=== PATIENT | female | born 1935 | race Caucasian/White ===

== ENCOUNTER 2017-02-26 05:20 | Inpatient (IN) | payer OTHER, BC ==
[2017-02-07 12:58] VITALS: BMI 19.0
--- NOTE | 2017-02-07 13:22 | PAT Medication Instructions ---
Service Date Feb 07, 2017. Current Home Medication List Botulinum Toxin Type A (Botox), 1 DOSE TOP [id number] Calcium Carbonate-Vitamin D (Calcium), 1 TAB PO BID Cholecalciferol (Vitamin D3), 1 TAB PO QAM Glucosamine Sulfate (Glucosamine), 1,000 MG PO QAM Memantine (Namenda), 5 MG PO BID Metoprolol Succ (Toprol Xl) (Toprol-Xl), 25 MG PO QAM Pantoprazole (Protonix), 40 MG PO QAM Simvastatin (Zocor), 20 MG PO QPM Verapamil (Calan), 120 MG PO QPM Medication Instructions For Your Scheduled Surgery Botulinum Toxin Type A (Botox), 1 DOSE TOP [id number] (continue as usual) - Hold the following medications 7 days prior to surgery: Glucosamine Sulfate (Glucosamine), 1,000 MG PO QAM - Hold the following medications the morning of surgery: Cholecalciferol (Vitamin D3), 1 TAB PO QAM Calcium Carbonate-Vitamin D (Calcium), 1 TAB PO BID - Take the following medications the morning of surgery with a sip of water: Metoprolol Succ (Toprol Xl) (Toprol-Xl), 25 MG PO QAM Pantoprazole (Protonix), 40 MG PO QAM Memantine (Namenda), 5 MG PO BID - Take the following medications as scheduled the night before surgery: Simvastatin (Zocor), 20 MG PO QPM Verapamil (Calan), 120 MG PO QPM Memantine (Namenda), 5 MG PO BID Calcium Carbonate-Vitamin D (Calcium), 1 TAB PO BID If you have any questions please call us at [phone] or [phone] ( Tram) or [phone]
[2017-02-07 13:53] LABS: BASO % 0.8 %; BASO ABS # 0.03 K/uL (0-0.2); COMPLETE YES; EOS % 1.1 %; LYMPH % 34.9 %; LYMPH ABS # 1.25 K/uL (1.2-3.4); MEAN CORPUSCULAR HEMOGLOBIN 30.7 pg (25-34); MEAN CORPUSCULAR HGB CONC 34.1 g/dl (32-36); MEAN PLATELET VOLUME 10.8 fL (7.4-10.4); MONO % 10.3 %; NEUT % 52.9 %; PLATELET COUNT 153 K/uL (130-400); RED BLOOD COUNT 4.11 M/uL (4.2-5.4); WHITE BLOOD COUNT 3.58 K/uL (4.8-10.8)
--- NOTE | 2017-02-07 13:57 | DIAGNOSTIC IMAGING REPORT ---
TWO VIEW CHEST CLINICAL HISTORY: Preoperative examination. FINDINGS: PA and lateral chest radiographs are obtained. No prior studies are available for comparison at the time of dictation. The heart is top normal for projection and there is atherosclerotic calcification of the thoracic aorta. A calcified granuloma is noted at the right lung base. The lungs and pleural spaces are otherwise clear. There is no pneumothorax. The skeletal structures are osteopenic. The bony thorax appears intact. Moderate degenerative changes seen throughout the thoracic spine. IMPRESSION: No active disease in the chest. Electronically signed by: Sudheer Ratliff M.D. 02/07/2017 1:55 PM Dictated Date/Time: 02/07/2017 1:54 PM
[2017-02-07 13:58] LABS: MANUAL MICROSCOPIC REQUIRED? NO; REVIEW REQ? NO; URINE APPEARANCE CLEAR (CLEAR); URINE BILIRUBIN NEG (NEG); URINE COLOR YELLOW; URINE NITRITE NEG (NEG); URINE SPECIFIC GRAVITY 1.019 (1.000-1.030); UROBILINOGEN NEG (NEG); ZZUR CULT IF INDIC CLEAN CATCH NO
[2017-02-07 14:22] LABS: BUN/CREATININE RATIO 11.4 (10-20); CALCIUM 9.6 mg/dl (8.5-10.1); CREATININE 1.1 mg/dl (0.60-1.20); POTASSIUM 3.9 mmol/L (3.5-5.1)
--- NOTE | 2017-02-25 17:13 | HISTORY & PHYSICAL EXAMINATION ---
DATE OF ADMISSION: 02/26/2017 CHIEF COMPLAINT: Right hip pain. HISTORY OF PRESENT ILLNESS: This is a 81-year-old female patient of Dr. Prasad'penny complaining of chronic right hip pain, longstanding, now progressively getting worse. The patient has been diagnosed with end-stage osteoarthritis per clinical and radiographic exams and wishes to proceed with a right total hip arthroplasty. The patient has increased pain with weightbearing activities and her pain does interfere with her activities of daily living. PAST MEDICAL HISTORY: Hypercholesterolemia, sleep apnea with the use of CPAP, rheumatoid arthritis, osteoarthritis, sciatica, acid reflux, recent severe weight loss. SOCIAL HISTORY: Nonsmoker, nondrinker. PAST SURGICAL HISTORY: Tubal ligation, bilateral cataracts and bilateral carpal tunnel. FAMILY HISTORY: Noncontributory. REVIEW OF SYSTEMS: The patient complains of chronic right hip pain. Otherwise, denies any shortness of breath, chest pain, nausea, vomiting or any other joint complaints. MEDICATIONS: Include Botox 100 units injection around eyes and blepharospasm, calcium 6/200 one twice daily, Glucosamine/chondroitin daily, memantine 5 mg b.i.d., metoprolol 25 mg daily, nasal suspension 2 sprays in each nostril once daily, pantoprazole 40 mg daily, simvastatin 20 mg daily, verapamil 120 mg daily, Vitamin D3 daily. ALLERGIES: No known drug allergies. PHYSICAL EXAMINATION: GENERAL: Well-developed, well-nourished 81-year-old female in no acute distress. She is alert and oriented x3 and pleasant. HEENT: Normocephalic, atraumatic. Extraocular motions are intact. Pupils are equal and reactive to light. HEART: Regular rate and rhythm, no murmurs appreciated. LUNGS: Clear. ABDOMEN: Soft and nontender, bowel sounds are present. EXTREMITIES: Right hip reveals no significant flexion contracture. She does have pain with passive internal and external rotation of the hip in a straightened position and in 90/90 degrees of flexion. NEUROLOGIC: Neurovascularly, she is intact in her right lower extremity. DIAGNOSES: Right hip end-stage osteoarthritis, hypercholesterolemia, sleep apnea with the use of CPAP, rheumatoid arthritis, osteoarthritis, sciatica, acid reflux and severe weight loss in the past. PLAN: The patient was advised of her diagnosis. Indications, risks, benefits, and postop course have all been reviewed. The patient wishes to proceed with a right total hip arthroplasty. Necessary consent forms, preoperative testing and clearances will be obtained.
[2017-02-26] VITALS (8 sets, daily range): BP systolic 91–139; BP diastolic 51–74; PULSE 73–92; TEMP 36.3–36.7; O2SAT 99–100; Ht 152.4 cm; Wt 45.7 kg
[~2017-02-26] VITALS: Ht 152.4 cm; Wt 45.7 kg
[~2017-02-26 05:20] MED LIST: BTLAI TOP; CALC-51 PO; CHOL1CAP57 PO; GLUC10007 PO; METO25TA3 PO; NMN5 PO; PANT40TA PO; SIMV20TA2 PO; VERA120T15 PO
[2017-02-26] MEDS ORDERED: CEFAZOLIN 1000MG/55 ML D5W 55 ML IV SCH (06:00)
[2017-02-26] MEDS ORDERED: FAMOTIDINE 20 MG TAB PO SCH (06:00)
[2017-02-26] MEDS ORDERED: METOCLOPRAMIDE HCL 10 MG TAB PO SCH (06:00)
[2017-02-26] MEDS ORDERED: LACTATED RINGER'S 1000ML 1,000 ML IV SCH (06:00)
[2017-02-26] MEDS ORDERED: ROPIVACAINE 5MG/ML 30 ML 150 MG, BUPIVACAINE/EPINEPHR 0.5% MPF 30 ML, KETOROLAC TROMETH... INFIL SCH ×6 (06:00)
[2017-02-26] MEDS ORDERED: ACETAMINOPHEN 500 MG TAB PO SCH (06:00)
[2017-02-26] MEDS ORDERED: GABAPENTIN 300 MG CAP PO SCH (06:00)
[2017-02-26] MEDS ORDERED: LACTATED RINGER'S 1000ML IV SCH (06:00)
[2017-02-26] MEDS ORDERED: CeleBREX 200 MG CAP PO SCH (06:00)
[2017-02-26] MEDS ORDERED: DEXAMETHASONE 4 MG TAB PO SCH (06:00)
[2017-02-26] MEDS ORDERED: BUPIVACAINE 0.5 % 5 MG/1 ML PF 10ML VIAL ONE (06:33)
[2017-02-26] MEDS ORDERED: MIDAZOLAM HCL 1 MG/ML 2ML VIAL ONE (06:46)
[2017-02-26] MEDS: TRANEXAMIC ACID INJ 1,000 MG in SODIUM CHLORIDE 0.9% 100ML 100 ML IV SCH ×2 (06:53→15:33)
[2017-02-26] MEDS ORDERED: POVIDONE-IODINE OP SOLN 30 ML BTL ONE (07:10)
[2017-02-26] MEDS ORDERED: ORTHO JOINT ANESTHETIC ONE (07:10)
[2017-02-26] MEDS ORDERED: BACITRACIN 50000 UNIT VIAL ONE (07:11)
--- NOTE | 2017-02-26 07:12 | History & Physical Bridge Note ---
H&P Re-Evaluation Bridge Note: I have examined the patient, reviewed the History & Physical and in the interval since the performance of the History & Physical I have noted the following changes of clinical significance: No changes noted
[2017-02-26] MEDS ORDERED: LABETALOL HCL IV 5 MG/ML 20ML IV PRN (07:45)
[2017-02-26] MEDS ORDERED: MEPERIDINE HCL 25 MG/ML CARP IV PRN (07:45)
[2017-02-26] MEDS ORDERED: HYDROmorphone INJ 1 MG/ML SYR IV PRN (07:45)
[2017-02-26] MEDS ORDERED: ONDANSETRON INJ 2 MG/ML 2 ML VIAL IV PRN ×2 (07:45→10:00)
[2017-02-26] MEDS ORDERED: FENTANYL CITRATE INJ 50 MCG/1 ML 2 ML VIAL IV PRN (07:45)
[2017-02-26] MEDS ORDERED: ATROPINE SULFATE 0.1 MG/ML 5ML SYR IV PRN (07:45)
[2017-02-26] MEDS ORDERED: EpHEDrine SULFATE INJ 50 MG/ML AMP IV PRN (07:45)
[2017-02-26] MEDS ORDERED: EpHEDrine SULFATE 50MG/5ML SYR ONE (07:57)
[2017-02-26] MEDS ORDERED: PHENYLEPHRINE 100MCG/ML 5ML SYR ONE (08:38)
[2017-02-26] MEDS ORDERED: PHENYLEPHRINE HCL INJ 10 MG/ML VIAL ONE (09:05)
--- NOTE | 2017-02-26 09:54 | [facility] Operative Report ---
Operative Report Operative Date Feb 26, 2017. Pre-Operative Diagnosis Right hip end-stage osteoarthritis Post-Operative Diagnosis same ,abductor tendinopathy Procedure(s) Performed right total hip replacement Surgeon Dr Prasad Plant Machinist Surgeon(s) Jose Luis Barton PA-C Estimated Blood Loss 150 ml Findings protrusio djd end stage grade 4 right hip Specimens A. Right femoral head Drains 2 hemovac Anesthesia spinal,sedation,orthomix Complication(s) None Disposition Recovery Room / PACU Indications end stage djd oa I attest to the content of the Intraoperative Record and any orders documented therein. Any exceptions are noted below.
[2017-02-26] MEDS ORDERED: OXYCODONE HCL IR 5 MG TAB (IMMEDIATE RELEASE) PO PRN (10:00)
[2017-02-26] MEDS ORDERED: TRAMADOL HCL 50 MG TAB PO PRN (10:00)
[2017-02-26] MEDS ORDERED: MAGNESIUM HYDROXIDE SUSP 30 ML UDC PO PRN (10:00)
[2017-02-26] MEDS ORDERED: ZOLPIDEM TARTRATE 5 MG TAB PO PRN (10:00)
[2017-02-26] MEDS ORDERED: SOD PHOSPHATE/SOD BIPHOSPHATE ENEMA 132 ML BTL PR PRN (10:00)
[2017-02-26] MEDS ORDERED: MoRPHine SULFATE 2 MG/ML CARP IV PRN (10:00)
[2017-02-26] MEDS ORDERED: BISACODYL 10 MG SUPP PR PRN (10:00)
--- NOTE | 2017-02-26 10:31 | DIAGNOSTIC IMAGING REPORT ---
RIGHT PELVIS/UNILATERAL HIP 1 VIEW CLINICAL HISTORY: Right hip arthroplasty. COMPARISON: None FINDINGS: Alignment of the total right hip arthroplasty is anatomic no periprosthetic fracture or unexpected radiopaque foreign bodies are identified. There are 2 acetabular screws and surgical drains. Skin jane are present. IMPRESSION: Expected findings following total right hip arthroplasty. Electronically signed by: Richy Rodgers M.D. 02/26/2017 10:30 AM Dictated Date/Time: 02/26/2017 10:30 AM
--- NOTE | 2017-02-26 10:34 | OPERATIVE REPORT ---
DATE OF OPERATION: 02/26/2017 INDICATION FOR PROCEDURE: The patient is a 81-year-old female with progressive pain and disability due to osteoarthritis in her right hip. Her physical exam demonstrates that she has pain and positive impingement signs. Radiographs demonstrate she is [id number] in her right hip with protrusio type hip arthritis with rimming osteophytes. PREOPERATIVE DIAGNOSIS: End-stage osteoarthritis of the right hip. POSTOPERATIVE DIAGNOSIS: Same. PROCEDURE: Right total hip arthroplasty. SURGEON: Dr. Prasad. MAIL PROCESSING ASSOCIATE: Jose Luis Barton PA-C. ANESTHESIA: Spinal sedation, Orthomix. OPERATION AND FINDINGS: OPERATIVE PROCEDURE: The patient taken to the operating room, anesthetized under spinal anesthetic sedation. She was placed supine on the operating room table on a sacral pad. A towel roll was placed under her lumbar spine for support. The bed was placed in some Trendelenburg tilted to the left to help expose the right hip. A foot roll was placed to flex her knee 90 degrees, hip 60 degrees. Her right hip was sterilely prepped and draped in usual sterile fashion. Longitudinal incision was made over the lateral side of the right hip. Subcutaneous fat was fairly deep and divided down to the fascia. Subcutaneous bleeders were cauterized. The fascia elicia was divided longitudinally and the gluteus briana fascia was split proximally. Trochanteric bursa was resected. The patient had some gluteus medius abductor tendinopathy without a raven tear, but there was some tendinopathic fraying of the tendon. The Hardinge type approach was performed. The gluteus medius was split between its anterior 40% and posterior 60%. The minimus was identified, divided and reflected off the capsule. The capsule was divided down to the hip joint. A curvilinear incision was made through the gluteus medius tendon leaving a cuff of tissue for repair on the trochanter and the vastus lateralis was split longitudinally for 3 cm. Muscular capsular flap was elevated off the hip joint. There were femoral neck osteophytes, rimming osteophytes and grade 4 DJD in the femoral head noted upon dislocation with flexion and external rotation. The femoral neck cut was made 15 mm proximal to the lesser trochanter. The oscillating saw was used. The femoral head was about 42 mm size. Central region of the head was down to bone. Acetabular retractors were placed. The osteophytes were resected. The acetabular labrum was resected. Soft tissue in the acetabular fossa was resected. The transverse acetabular ligament was resected. We started with a 40 mm reamer to medialize the reamer which we did not have to do much because she was already protrusio. Then we went up in sequential 2 mm increments up to a 46, which had good fit and fill. The trial was placed and was an excellent fit. The Court[place] Trident PSL 46 mm D cup was impacted in about 45 degrees of abduction and 15 degrees of anteversion. There was good press fit. Two additional screws 6.5 x 25 x 20 mm screws were used for cup fixation and then after irrigation with antibiotic solution, we placed in the Trident X3 poly 36 mm D 0 degree liner. Then we injected some of the Orthomix around the capsule, around the acetabulum and into the minimus tendon area. Then I exposed the femur with flexion and external rotation. Then a box osteotome was used to open up the canal followed by canal reamer, followed by broaches for the Accolade II stem. We broached up to a 4, which had appropriate fit and fill, 127 degree neck angle was used based on preoperative templating. We used a -5 neck length which gave equal leg lengths and stability, full range of motion. Trials were removed. The canal was irrigated with antibiotic solution and bacitracin. The Accolade II #4 stem, 127 degree neck angle was impacted until fully seated and a good press fit. Then the 36 mm Biolox ceramic -5 neck femoral head was impacted onto the stem. This was reduced to the acetabulum. Stability was verified with full flexion, internal rotation, adduction and external rotation and extension. Soft tissue was satisfactory in terms of tension. The minimus was then repaired with [id number] #1 Vicryl sutures. The medius was repaired with transosseous #5 FiberWire sutures using Jai-Patrice suture technique and lateral row soft tissue fixation with #2 FiberWire [id number] sutures. The 2 drains were placed into the joint prior to that closure brought out laterally and then the vastus lateralis closed with a running #1 Vicryl suture, the medius split was closed with [id number] #1 Vicryl sutures. The vastus lateralis and the gluteus briana fascia was closed with interrupted [id number] #1 Vicryl sutures. Subcutaneous tissue closed with interrupted large #2 Vicryl sutures to close the space and 2-0 Vicryl superficially with jane and Silverlon dressing and Hemovac was attached to the drains. The patient had about 150 mL of blood loss, tolerated the procedure well. OLIVERIO Morales was my press operator assistant and functioned as press operator assistant for the entire procedure. He assisted in patient positioning, prepping, draping, leg positioning, soft tissue retraction, and perform the subcutaneous and skin closure and dressings and will participate in postoperative care of the patient. I attest to the content of the Intraoperative Record and any orders documented therein. Any exceptio ns are noted below.
--- NOTE | 2017-02-26 11:17 | Anesthesiology Progress Note ---
Anesthesia Post Op Note Date & Time Feb 26, 2017 at 11:16 Vital Signs Pain Intensity: 0 Vital Signs Past 12 Hours Date Time Temp Pulse Resp B/P Pulse Ox O2 Delivery O2 Flow Rate FiO2 02/26/17 11:05 83 16 99/55 100 Nasal Cannula 2 02/26/17 10:50 36.2 74 16 101/56 100 Nasal Cannula 2 02/26/17 10:40 75 18 102/59 100 Nasal Cannula 2 02/26/17 10:30 74 16 101/66 100 Nasal Cannula 2 02/26/17 10:20 78 16 113/56 100 Nasal Cannula 2 02/26/17 10:10 74 15 106/58 100 Nasal Cannula 2 02/26/17 10:00 81 19 105/52 100 Nasal Cannula 2 02/26/17 09:54 36.3 81 16 112/58 100 Nasal Cannula 2 02/26/17 06:03 36.5 73 16 139/73 99 Room Air Notes Mental Status: alert / awake / arousable, participated in evaluation Pt Amnestic to Procedure: Yes Nausea / Vomiting: adequately controlled Pain: adequately controlled Airway Patency, RR, SpO2: stable & adequate BP & HR: stable & adequate Hydration State: stable & adequate Neuraxial Anesthesia: was administered, sensory block is resolving Anesthetic Complications: no major complications apparent
[2017-02-26] MEDS ORDERED: MoRPHine SULFATE 4 MG/ML 1 ML CARP\\VIAL IV PRN (14:30)
--- NOTE | 2017-02-26 15:32 | Medical Consult ---
Consultation Date of Consultation: Feb 26, 2017. Attending Physician: Mynor Prasad M.D. Reason for Consultation: Medical management History of Present Illness This patient is a 81-year-old female with a history of hypertension, hip osteoarthritis, hyperlipidemia, obstructive sleep apnea on CPAP, GERD, blepharospasm, CTD stage III, restless leg syndrome, osteoporosis, vitamin D deficiency, and mild cognitive impairment, who is here for a right total hip arthroplasty completed by Dr. Hernandez this morning. Postoperatively, she was doing very well. She denies chest pain or shortness of breath, no nausea vomiting or headaches. Her hip pain is very well controlled. She is eating and drinking. Her Juarez catheter is in place, and her drains are in place for the hip. Past Medical/Surgical History Past medical history: Hip osteoarthritis Hyperlipidemia Obstructive sleep apnea on CPAP Hypertension Sciatica GERD Blepharospasm Mild cognitive impairment CKD stage III Mrs. leg syndrome Osteoporosis Vitamin D deficiency Past surgical history: Cardiac catheterization 15 years ago-normal as per patient Cataracts BTL CTS release Family History Noncontributory due to advanced age Social History Smoking Status: Never Smoker Alcohol Use: none Drug Use: none Marital Status: Housing Status: lives with family Occupation Status: retired Allergies Coded Allergies: Hydrocodone (Verified Allergy, Mild, RASH, 02/26/17) RN CONFIRMED WITH PATIENT AND FAMILY THAT ALLERGY ONLY A RASH - NO HIVES OR RESP COMPLICATIONS Diazepam (Unverified Allergy, Unknown, per records , 02/07/17) Home Medications Reported Home Medications Medications Dose Route/Sig Max Daily Dose Days Date Category Dose Instructions Vitamin D3 (Cholecalciferol) 1,000 Unit Cap 1 Tab PO QAM 02/07/17 Reported Calan (Verapamil HCl) 120 Mg Tab 120 Mg PO QPM 02/07/17 Reported Zocor (Simvastatin) 20 Mg Tab 20 Mg PO QPM 02/07/17 Reported Protonix (Pantoprazole Sodium) 40 Mg Tab 40 Mg PO QAM 02/07/17 Reported Toprol-Xl (Metoprolol Succinate) 25 Mg Tabcr 25 Mg PO QAM 02/07/17 Reported Namenda (Memantine) 5 Mg Tab 5 Mg PO BID 02/07/17 Reported Glucosamine (Glucosamine Sulfate) 1,000 Mg Tab 1,000 Mg PO QAM 02/07/17 Reported Calcium (Calcium Carbonate-Vitamin D) 1 Tab Tab 1 Tab PO BID 02/07/17 Reported Botox (Botulinum Toxin Type A) 100 Units Inj 1 Dose TOP [id number] 02/07/17 Reported BLEPHOROSPAMS Current Inpatient Medications Current Inpatient Medications Medications (Trade) Dose Ordered Sig/Cy Route Start Time Stop Time Status Last Admin Dose Admin Lactated Ringer's 1,000 ml @ 15 mls/hr Q24H IV 02/26/17 06:00 02/27/17 05:59 Lactated Ringer's 1,000 ml @ 60 mls/hr [id number] IV 02/26/17 06:00 02/26/17 22:39 02/26/17 06:15 60 MLS/HR Cefazolin Sodium (Ancef 1000mg/55 ml D5W) 55 ml @ 100 mls/hr PREOP IV 02/26/17 06:00 02/26/17 18:00 02/26/17 07:28 100 MLS/HR Acetaminophen (Tylenol Tab) 1,000 mg PREOP PO 02/26/17 06:00 02/26/17 18:00 02/26/17 06:16 1,000 MG Celecoxib (CeleBREX CAP) 200 mg PREOP PO 02/26/17 06:00 02/26/17 18:00 02/26/17 06:15 200 MG Dexamethasone (Decadron Tab) 8 mg PREOP PO 02/26/17 06:00 02/26/17 18:00 02/26/17 06:16 8 MG Famotidine (Pepcid Tab) 20 mg PREOP PO 02/26/17 06:00 02/26/17 18:00 02/26/17 06:15 20 MG Gabapentin (Neurontin Cap) 300 mg PREOP PO 02/26/17 06:00 02/26/17 18:00 02/26/17 06:15 300 MG Metoclopramide HCl 10 mg 10 mg PREOP PO 02/26/17 06:00 02/26/17 18:00 02/26/17 06:15 10 MG Tranexamic Acid/ Sodium Chloride (Cyklokapron Inj/ Nss 100ml) 110 ml @ 660 mls/hr TODAY@06,0630 IV 02/26/17 06:00 02/26/17 18:00 02/26/17 06:53 660 MLS/HR Memantine (Namenda Tab) 5 mg BID PO 02/26/17 21:00 03/28/17 20:59 Metoprolol Succinate (Toprol Xl Tab) 25 mg QAM PO 02/27/17 09:00 03/29/17 08:59 Pantoprazole Sodium (Protonix Tab) 40 mg QAM PO 02/27/17 09:00 03/29/17 08:59 Simvastatin (Zocor Tab) 20 mg QPM PO 02/26/17 21:00 03/28/17 20:59 Cholecalciferol (Vitamin D Tab) 1,000 inter.unit QAM PO 02/27/17 09:00 03/29/17 08:59 Verapamil HCl 120 mg 120 mg QPM PO 02/26/17 21:00 03/28/17 20:59 Potassium Chloride/Dextrose/ Sod Cl (D5W And 1/2nss + 20meq KCl) 1,000 ml @ 100 mls/hr Q10H IV 02/26/17 14:30 02/27/17 09:51 Celecoxib (CeleBREX CAP) 200 mg BID PO 02/26/17 21:00 03/28/17 20:59 Oxycodone HCl (Roxicodone Immediate Rel Tab) 1 TABLET FOR PAIN RATING... Q4H PRN PO 02/26/17 10:00 03/12/17 09:59 Morphine Sulfate (MoRPHine SULFATE INJ) 2 mg Q2H PRN IV 02/26/17 10:00 03/12/17 09:59 Acetaminophen (Tylenol Tab) 1,000 mg Q8H PO 02/26/17 14:00 03/28/17 13:59 Magnesium Hydroxide (Milk Of Magnesia Susp) 30 ml Q6H PRN PO 02/26/17 10:00 03/28/17 09:59 Bisacodyl (Dulcolax Supp) 10 mg DAILY PRN LA 02/26/17 10:00 03/28/17 09:59 Sodium Biphosphate/ Sodium Phosphate (Fleet Enema) 132 ml DAILY PRN LA 02/26/17 10:00 03/28/17 09:59 Docusate Sodium (coLACE CAP) 100 mg BID PO 02/26/17 21:00 03/28/17 20:59 Diphenhydramine HCl (Benadryl Cap) 25 mg Q8H PRN PO 02/26/17 10:00 03/28/17 09:59 Zolpidem Tartrate (Ambien Tab) 5 mg HSZ PRN PO 02/26/17 10:00 03/28/17 09:59 Multivitamins (Multivitamin Tab) 1 tab QAM PO 02/27/17 09:00 03/29/17 08:59 Ondansetron HCl (Zofran Inj) 4 mg Q6H PRN IV 02/26/17 10:00 03/28/17 09:59 Tramadol HCl 1 TABLET FOR PAIN RATING... Q4H PRN PO 02/26/17 10:00 03/28/17 09:59 Cefazolin Sodium/ Dextrose (Ancef Iv/D5 50ml) 55 ml @ 100 mls/hr Q8@0000,0800,1600 IV 02/26/17 16:00 02/27/17 00:32 Aspirin (Ecotrin Tab) 81 mg BID PO 02/26/17 21:00 03/28/17 20:59 Calcium/Vitamin D (Caltrate Plus Tab) 1 tab BID PO 02/26/17 21:00 03/28/17 20:59 Morphine Sulfate (MoRPHine SULFATE INJ) 4 mg Q2H PRN IV 02/26/17 14:30 03/12/17 14:29 Review of Systems Constitutional: No chills, No fever Eyes: No problem reported ENT: No problem reported Respiratory: No shortness of breath Cardiovascular: No chest pain Abdomen: No constipation, No diarrhea, No nausea, No pain, No vomiting Musculoskeletal: + joint pain (right hip) Genitourinary - Female: No problem reported Neurologic: + memory loss Psychiatric: No problem reported Endocrine: No problem reported Hematologic / Lymphatic: No problem reported Integumentary: No problem reported Allergic / Immunologic: No problem reported Physical Exam Date Time Temp Pulse Resp B/P Pulse Ox O2 Delivery O2 Flow Rate FiO2 02/26/17 14:16 36.7 84 18 119/65 100 Nasal Cannula 2.0 02/26/17 13:46 36.5 78 17 105/67 100 Nasal Cannula 2.0 02/26/17 12:45 36.4 84 14 100/59 99 Nasal Cannula 2.0 02/26/17 12:16 82 14 109/58 94 Nasal Cannula 2 02/26/17 12:00 82 14 105/64 95 Nasal Cannula 2 02/26/17 11:51 36.3 84 14 102/60 97 Nasal Cannula 2 02/26/17 11:45 7 17 90/60 100 Nasal Cannula 2 02/26/17 11:30 78 16 101/56 100 Nasal Cannula 2 02/26/17 11:15 76 16 101/64 100 Nasal Cannula 2 02/26/17 11:05 83 16 99/55 100 Nasal Cannula 2 02/26/17 10:50 36.2 74 16 101/56 100 Nasal Cannula 2 02/26/17 10:40 75 18 102/59 100 Nasal Cannula 2 02/26/17 10:30 74 16 101/66 100 Nasal Cannula 2 02/26/17 10:20 78 16 113/56 100 Nasal Cannula 2 02/26/17 10:10 74 15 106/58 100 Nasal Cannula 2 02/26/17 10:00 81 19 105/52 100 Nasal Cannula 2 02/26/17 09:54 36.3 81 16 112/58 100 Nasal Cannula 2 02/26/17 06:03 36.5 73 16 139/73 99 Room Air General Appearance: WD/WN, no apparent distress Head: normocephalic, atraumatic Eyes: normal inspection, EOMI, sclerae normal ENT: hearing grossly normal, pharynx normal Neck: no adenopathy, thyroid normal, no JVD, no carotid bruits, trachea midline Respiratory/Chest: lungs clear, normal breath sounds, no respiratory distress, no accessory muscle use Cardiovascular: regular rate, rhythm, no edema, no gallop, no JVD, no murmur, normal peripheral pulses Abdomen/GI: normal bowel sounds, non tender, soft, no organomegaly, no pulsatile mass Extremities/Musculoskelatal: no calf tenderness, no pedal edema, + pertinent finding (right hip with dressing in place, drains draining bloody fluid, able to move ankles feet and toes, sensation intact in legs and feet.) Neurologic/Psych: alert, normal mood/affect, oriented x 3 Skin: normal color, warm/dry, no rash Lymphatic: no adenopathy Assessment & Plan This patient is a 81-year-old female with a history of hypertension, hip osteoarthritis, hyperlipidemia, obstructive sleep apnea on CPAP, GERD, blepharospasm, CTD stage III, restless leg syndrome, osteoporosis, vitamin D deficiency, and mild cognitive impairment, who is here for a right total hip arthroplasty. Right JAMIL-postop day 0 -Pain control and postoperative management as per orthopedic primary service -DVT prophylaxis with aspirin 81 mg by mouth twice a day as per orthopedics -I would avoid NSAIDs such as Celebrex in this patient given her history of CK D stage III Hypertension, hyperlipidemia-blood pressure is stable -Continue home metoprolol, verapamil, and simvastatin Obstructive sleep apnea-stable -Continue CPAP at night, can bring from home CKD stage III-baseline creatinine 1.1-1.2, GFR 47 -Avoid nephrotoxins and please renally dose all meds Osteoporosis, vitamin D deficiency-stable -Continue calcium plus vitamin D Mild cognitive impairment-stable, watch for delirium in the setting of opioid use and hospitalization -Continue Namenda at home dose GERD-stable -Continue PPI DVT prophylaxis aspirin, SCDs Disposition: Full code, to home with home PT/OT in 2-3 days
[2017-02-26] MEDS: ACETAMINOPHEN 500 MG TAB PO SCH ×2 (15:40→21:30)
[2017-02-26] MEDS: D5W AND 1/2NSS + 20MEQ KCL 1,000 ML IV SCH (15:40)
[2017-02-26] MEDS: CEFAZOLIN IV 1,000 MG in DEXTROSE 5% 50ML 50 ML IV SCH (15:41)
[2017-02-26] MEDS: CALCIUM 600MG + VIT D 400 IU TAB PO SCH (20:53)
[2017-02-26] MEDS: CeleBREX 200 MG CAP PO SCH (20:55)
[2017-02-26] MEDS: VERAPAMIL HCL 120 MG TABCR PO SCH (20:56)
[2017-02-26] MEDS: ASPIRIN 81 MG ECTAB PO SCH (20:56)
[2017-02-26] MEDS: DOCUSATE SODIUM 100 MG CAP PO SCH (20:56)
[2017-02-26] MEDS: SIMVASTATIN 20 MG TAB PO SCH (20:57)
[2017-02-26] MEDS: MEMANTINE 5 MG TAB PO SCH (20:57)
[2017-02-26] MEDS ORDERED: CALCIUM CARBONATE VITAMIN D PO SCH (21:00)
[2017-02-27] VITALS (9 sets, daily range): BP systolic 95–137; BP diastolic 48–77; PULSE 68–84; TEMP 36.6–36.9; O2SAT 97–100
[2017-02-27] MEDS: D5W AND 1/2NSS + 20MEQ KCL 1,000 ML IV SCH (01:15)
[2017-02-27] MEDS: CEFAZOLIN IV 1,000 MG in DEXTROSE 5% 50ML 50 ML IV SCH (01:15)
[2017-02-27] MEDS: ACETAMINOPHEN 500 MG TAB PO SCH ×3 (06:30→20:59)
[2017-02-27 06:50] LABS: COMPLETE YES; HEMATOCRIT 29.6 % (37-47); IG% 0.2 %; LYMPH % 6.5 %; LYMPH ABS # 0.79 K/uL (1.2-3.4); MEAN CELL VOLUME 88.1 fL (80-100); MEAN CORPUSCULAR HEMOGLOBIN 29.8 pg (25-34); MEAN CORPUSCULAR HGB CONC 33.8 g/dl (32-36); MEAN PLATELET VOLUME 10.7 fL (7.4-10.4); MONO % 8.4 %; NEUT % 84.9 %; PLATELET COUNT 130 K/uL (130-400); RED BLOOD COUNT 3.36 M/uL (4.2-5.4); WHITE BLOOD COUNT 12.08 K/uL (4.8-10.8)
[2017-02-27 07:16] LABS: BUN/CREATININE RATIO 11.8 (10-20); CALCIUM 8.4 mg/dl (8.5-10.1); CREATININE 1.2 mg/dl (0.60-1.20); POTASSIUM 4.1 mmol/L (3.5-5.1)
--- NOTE | 2017-02-27 08:26 | Anesthesiology Progress Note ---
Anesthesia Post Op Note Date & Time Feb 27, 2017 at 08:25 Vital Signs Pain Intensity: 0.0 Vital Signs Past 12 Hours Date Time Temp Pulse Resp B/P Pulse Ox O2 Delivery O2 Flow Rate FiO2 02/27/17 07:26 36.6 79 17 135/69 99 Room Air 02/27/17 03:40 36.7 81 16 117/58 98 Room Air 02/27/17 01:45 82 112/61 02/27/17 01:15 Room Air 02/27/17 00:01 36.9 84 17 95/48 97 Room Air Notes Mental Status: alert / awake / arousable, participated in evaluation Pt Amnestic to Procedure: Yes Nausea / Vomiting: adequately controlled Pain: adequately controlled Airway Patency, RR, SpO2: stable & adequate BP & HR: stable & adequate Hydration State: stable & adequate Neuraxial Anesthesia: sensory block resolved Anesthetic Complications: no major complications apparent
[2017-02-27] MEDS: DOCUSATE SODIUM 100 MG CAP PO SCH ×2 (08:31→20:57)
[2017-02-27] MEDS: MULTIVITAMIN TAB PO SCH (08:32)
[2017-02-27] MEDS: CeleBREX 200 MG CAP PO SCH (08:32)
[2017-02-27] MEDS: ASPIRIN 81 MG ECTAB PO SCH ×2 (08:32→20:57)
[2017-02-27] MEDS: CALCIUM 600MG + VIT D 400 IU TAB PO SCH ×2 (08:33→20:58)
[2017-02-27] MEDS: PANTOprazole SOD 40 MG TAB PO SCH (08:34)
[2017-02-27] MEDS: MEMANTINE 5 MG TAB PO SCH ×2 (08:34→20:58)
[2017-02-27] MEDS: CHOLECALCIFEROL 1000 INTER.UNIT TAB PO SCH (08:35)
[2017-02-27] MEDS: METOPROLOL SUCC 25MG EXT REL TAB PO SCH (08:40)
--- NOTE | 2017-02-27 08:47 | Orthopedic Progress Note ---
Orthopedic Progress Note Date of Service Feb 27, 2017. Subjective Post OP Day: 1 Reports: feeling well, pain controlled w PO medications, Denies: SOB, calf pain , chest pain, complaints, light headedness, nausea / vomiting Objective calves soft nontender, N/V intact, hip located, capillary refill less than 2 sec., dressing C/D/I, A&O x3, toes mobile Silverlon in tact. Date Time Temp Pulse Resp B/P Pulse Ox O2 Delivery O2 Flow Rate FiO2 02/27/17 08:39 82 137/72 02/27/17 07:26 36.6 79 17 135/69 99 Room Air 02/27/17 07:15 99 Room Air 02/27/17 03:40 36.7 81 16 117/58 98 Room Air 02/27/17 01:45 82 112/61 02/27/17 01:15 Room Air 02/27/17 00:01 36.9 84 17 95/48 97 Room Air 02/26/17 19:08 36.7 85 20 97/52 100 Nasal Cannula 2.0 02/26/17 16:10 36.4 77 18 91/51 99 Nasal Cannula 4.0 02/26/17 15:08 36.3 81 18 99/61 100 Nasal Cannula 2.0 02/26/17 14:16 36.7 84 18 119/65 100 Nasal Cannula 2.0 02/26/17 13:46 36.5 78 17 105/67 100 Nasal Cannula 2.0 02/26/17 13:10 Nasal Cannula 2.0 02/26/17 13:10 36.7 92 12 127/74 100 Nasal Cannula 2.0 02/26/17 13:10 Nasal Cannula 2.0 02/26/17 12:45 36.4 84 14 100/59 99 Nasal Cannula 2.0 02/26/17 12:16 82 14 109/58 94 Nasal Cannula 2 02/26/17 12:00 82 14 105/64 95 Nasal Cannula 2 02/26/17 11:51 36.3 84 14 102/60 97 Nasal Cannula 2 02/26/17 11:45 7 17 90/60 100 Nasal Cannula 2 02/26/17 11:30 78 16 101/56 100 Nasal Cannula 2 02/26/17 11:15 76 16 101/64 100 Nasal Cannula 2 02/26/17 11:05 83 16 99/55 100 Nasal Cannula 2 02/26/17 10:50 36.2 74 16 101/56 100 Nasal Cannula 2 02/26/17 10:40 75 18 102/59 100 Nasal Cannula 2 02/26/17 10:30 74 16 101/66 100 Nasal Cannula 2 02/26/17 10:20 78 16 113/56 100 Nasal Cannula 2 02/26/17 10:10 74 15 106/58 100 Nasal Cannula 2 02/26/17 10:00 81 19 105/52 100 Nasal Cannula 2 02/26/17 09:54 36.3 81 16 112/58 100 Nasal Cannula 2 Laboratory Results 24 Hours: Test 02/27/17 06:30 White Blood Count 12.08 K/uL Red Blood Count 3.36 M/uL Hemoglobin 10.0 g/dL Hematocrit 29.6 % Mean Corpuscular Volume 88.1 fL Mean Corpuscular Hemoglobin 29.8 pg Mean Corpuscular Hemoglobin Concent 33.8 g/dl Platelet Count 130 K/uL Mean Platelet Volume 10.7 fL Neutrophils (%) (Auto) 84.9 % Lymphocytes (%) (Auto) 6.5 % Monocytes (%) (Auto) 8.4 % Eosinophils (%) (Auto) 0.0 % Basophils (%) (Auto) 0.0 % Neutrophils # (Auto) 10.24 K/uL Lymphocytes # (Auto) 0.79 K/uL Monocytes # (Auto) 1.02 K/uL Eosinophils # (Auto) 0.00 K/uL Basophils # (Auto) 0.00 K/uL Assessment & Plan Assessment: POD #1, Right JAMIL Plan: PT/ OT DVT proph- ASA D/C planning- Home w vs. [facility]. Appreciate medical input. Inhouse Planning Pain Management: Ultram, Morphine, PO Tylenol DVT Prophylaxis: TEDs, SCDs, ASA Discharge Planning Discharge Planning: uncertain Pain Management: Ultram, PO Tylenol DVT Prophylaxis: TEDs, ASA Therapy: Physical Therapy, Occupational Therapy
[2017-02-27] MEDS ORDERED: PANTOprazole SOD 40 MG TAB PO SCH (09:00)
--- NOTE | 2017-02-27 19:56 | Progress Note ---
Subjective Date of Service: Feb 27, 2017. Subjective Pt evaluation today including: conversation w/ patient, physical exam, lab review Review of Systems Constitutional: No chills, No fatigue, No fever, No problem reported, No see HPI, No sweats, No weakness, No weight loss Eyes: No diplopia, No discharge, No eye pain, No problem reported, No redness, No see HPI, No worsening of vision ENT: No dental problems, No hearing loss, No nasal symptoms, No problem reported, No see HPI, No sore throat, No tinnitus, No trouble swallowing, No unusual epistaxis Respiratory: No cough, No dyspnea at rest, No dyspnea on exertion, No hemoptysis, No problem reported, No see HPI, No shortness of breath, No sputum, No wheezing Cardiac: No PND, No chest pain, No claudication, No edema, No orthopnea, No palpitations, No problem reported, No see HPI Breast: No breast lump, No breast pain, No change in shape, No nipple discharge , No problem reported, No see HPI Abdomen: No GI bleeding, No constipation, No diarrhea, No nausea, No pain, No problem reported, No see HPI, No vomiting Musculoskeletal: No calf pain, No joint pain, No muscle pain, No problem reported, No see HPI, No swelling Female : No abnormal vaginal bleeding, No dysuria, No hematuria, No incontinence, No problem reported, No see HPI, No urinary frequency, No vaginal discharge Neurologic: No balance problems, No memory loss, No numbness/tingling, No paralysis, No problem reported, No see HPI, No vertigo, No weakness Psychiatric: No anhedonism, No anxiety, No depression symptoms, No insomnia, No problem reported, No see HPI, No substance abuse Heme: No abnormal bleeding/bruising, No clotting problems, No night sweats, No problem reported, No see HPI, No swollen lymph nodes Endo: No excessive thirst, No excessive urination, No fatigue, No problem reported, No see HPI Skin: No bleeding, No color change, No itch, No new/changing skin lesions, No problem reported, No rash, No see HPI Medications Current Inpatient Medications Medications (Trade) Dose Ordered Sig/Cy Route Start Time Stop Time Status Last Admin Dose Admin Memantine (Namenda Tab) 5 mg BID PO 02/26/17 21:00 03/28/17 20:59 02/27/17 08:34 5 MG Metoprolol Succinate (Toprol Xl Tab) 25 mg QAM PO 02/27/17 09:00 03/29/17 08:59 02/27/17 08:40 25 MG Pantoprazole Sodium (Protonix Tab) 40 mg QAM PO 02/27/17 09:00 03/29/17 08:59 02/27/17 08:34 40 MG Simvastatin (Zocor Tab) 20 mg QPM PO 02/26/17 21:00 03/28/17 20:59 02/26/17 20:57 20 MG Cholecalciferol (Vitamin D Tab) 1,000 inter.unit QAM PO 02/27/17 09:00 03/29/17 08:59 02/27/17 08:35 1,000 INTER.UNIT Verapamil HCl (Calan-Sr Tab) 120 mg QPM PO 02/26/17 21:00 03/28/17 20:59 02/26/17 20:56 120 MG Oxycodone HCl (Roxicodone Immediate Rel Tab) 1 TABLET FOR PAIN RATING... Q4H PRN PO 02/26/17 10:00 03/12/17 09:59 Morphine Sulfate (MoRPHine SULFATE INJ) 2 mg Q2H PRN IV 02/26/17 10:00 03/12/17 09:59 Acetaminophen (Tylenol Tab) 1,000 mg Q8H PO 02/26/17 14:00 03/28/17 13:59 02/27/17 13:30 1,000 MG Magnesium Hydroxide (Milk Of Magnesia Susp) 30 ml Q6H PRN PO 02/26/17 10:00 03/28/17 09:59 Bisacodyl (Dulcolax Supp) 10 mg DAILY PRN WI 02/26/17 10:00 03/28/17 09:59 Sodium Biphosphate/ Sodium Phosphate (Fleet Enema) 132 ml DAILY PRN WI 02/26/17 10:00 03/28/17 09:59 Docusate Sodium (coLACE CAP) 100 mg BID PO 02/26/17 21:00 03/28/17 20:59 02/27/17 08:31 100 MG Diphenhydramine HCl (Benadryl Cap) 25 mg Q8H PRN PO 02/26/17 10:00 03/28/17 09:59 Zolpidem Tartrate (Ambien Tab) 5 mg HSZ PRN PO 02/26/17 10:00 03/28/17 09:59 Multivitamins (Multivitamin Tab) 1 tab QAM PO 02/27/17 09:00 03/29/17 08:59 02/27/17 08:32 1 TAB Ondansetron HCl (Zofran Inj) 4 mg Q6H PRN IV 02/26/17 10:00 03/28/17 09:59 Tramadol HCl (Ultram Tab) 1 TABLET FOR PAIN RATING... Q4H PRN PO 02/26/17 10:00 03/28/17 09:59 Aspirin (Ecotrin Tab) 81 mg BID PO 02/26/17 21:00 03/28/17 20:59 02/27/17 08:32 81 MG Calcium/Vitamin D (Caltrate Plus Tab) 1 tab BID PO 02/26/17 21:00 03/28/17 20:59 02/27/17 08:33 1 TAB Morphine Sulfate (MoRPHine SULFATE INJ) 4 mg Q2H PRN IV 02/26/17 14:30 03/12/17 14:29 Objective Vital Signs Date Time Temp Pulse Resp B/P Pulse Ox O2 Delivery O2 Flow Rate FiO2 02/27/17 16:30 Room Air 02/27/17 15:24 36.7 68 16 103/56 99 Room Air 02/27/17 11:25 75 100 02/27/17 08:39 82 137/72 02/27/17 07:26 36.6 79 17 135/69 99 Room Air 02/27/17 07:15 99 Room Air 02/27/17 03:40 36.7 81 16 117/58 98 Room Air 02/27/17 01:45 82 112/61 02/27/17 01:15 Room Air 02/27/17 00:01 36.9 84 17 95/48 97 Room Air Physical Exam General Appearance: WD/WN, no apparent distress Eyes: normal inspection, EOMI ENT: normal ENT inspection, hearing grossly normal Neck: supple Respiratory/Chest: chest non-tender, lungs clear, normal breath sounds, no respiratory distress Cardiovascular: regular rate, rhythm, no edema, no gallop, no JVD Abdomen: normal bowel sounds, non tender, soft, no pulsatile mass Extremities: normal range of motion, non-tender, normal inspection, no pedal edema Neurologic/Psychiatric: supervisor contact and service clerks II-XII nml as tested, no motor/sensory deficits, alert, normal mood/affect, oriented x 3 Skin: normal color, warm/dry, no rash Laboratory Results Last 24 Hours Test 02/27/17 06:30 White Blood Count 12.08 K/uL Red Blood Count 3.36 M/uL Hemoglobin 10.0 g/dL Hematocrit 29.6 % Mean Corpuscular Volume 88.1 fL Mean Corpuscular Hemoglobin 29.8 pg Mean Corpuscular Hemoglobin Concent 33.8 g/dl Platelet Count 130 K/uL Mean Platelet Volume 10.7 fL Neutrophils (%) (Auto) 84.9 % Lymphocytes (%) (Auto) 6.5 % Monocytes (%) (Auto) 8.4 % Eosinophils (%) (Auto) 0.0 % Basophils (%) (Auto) 0.0 % Neutrophils # (Auto) 10.24 K/uL Lymphocytes # (Auto) 0.79 K/uL Monocytes # (Auto) 1.02 K/uL Eosinophils # (Auto) 0.00 K/uL Basophils # (Auto) 0.00 K/uL RDW Standard Deviation 41.6 fL RDW Coefficient of Variation 12.9 % Immature Granulocyte % (Auto) 0.2 % Immature Granulocyte # (Auto) 0.03 K/uL Sodium Level 144 mmol/L Potassium Level 4.1 mmol/L Chloride Level 110 mmol/L Carbon Dioxide Level 29 mmol/L Anion Gap 5.0 mmol/L Blood Urea Nitrogen 14 mg/dl Creatinine 1.20 mg/dl Est Creatinine Clear Calc Drug Dose 27.3 ml/min Estimated GFR () 49.8 Estimated GFR (Non- 43.0 BUN/Creatinine Ratio 11.8 Random Glucose 109 mg/dl Calcium Level 8.4 mg/dl Assessment and Plan 81-year-old female with S/P right total hip arthroplasty. she has Hx of hypertension, hip osteoarthritis, hyperlipidemia, obstructive sleep apnea on CPAP, GERD, blepharospasm, CTD stage III, restless leg syndrome, osteoporosis, vitamin D deficiency, and mild cognitive impairment Right JAMIL-postop day # 1 -Pain control -early mobilization -DVT prophylaxis as per orthopedic primary service, currently on aspirin 81 mg by mouth twice a day -I would avoid NSAIDs such as Celebrex in this patient given her history of CK D stage III Hypertension, hyperlipidemia-blood pressure is stable -Continue home metoprolol, verapamil, and simvastatin Obstructive sleep apnea-stable -Continue CPAP at night, can bring from home CKD stage III-baseline creatinine 1.1-1.2, GFR 47 -Avoid nephrotoxins and please renally dose all meds Osteoporosis, vitamin D deficiency-stable -Continue calcium plus vitamin D Mild cognitive impairment-stable, watch for delirium in the setting of opioid use and hospitalization -Continue Namenda at home dose GERD-stable -Continue PPI
[2017-02-27] MEDS: VERAPAMIL HCL 120 MG TABCR PO SCH (20:58)
[2017-02-27] MEDS: SIMVASTATIN 20 MG TAB PO SCH (20:59)
[2017-02-28] MEDS: ACETAMINOPHEN 500 MG TAB PO SCH ×3 (05:26→20:54)
[2017-02-28 06:16] LABS: BASO % 0.2 %; BASO ABS # 0.02 K/uL (0-0.2); COMPLETE YES; EOS % 0.3 %; HEMATOCRIT 33.2 % (37-47); IG% 0.3 %; LYMPH % 18.9 %; LYMPH ABS # 2.01 K/uL (1.2-3.4); MEAN CELL VOLUME 90.7 fL (80-100); MEAN CORPUSCULAR HEMOGLOBIN 30.3 pg (25-34); MEAN CORPUSCULAR HGB CONC 33.4 g/dl (32-36); MEAN PLATELET VOLUME 10.9 fL (7.4-10.4); MONO % 8.6 %; NEUT % 71.7 %; PLATELET COUNT 158 K/uL (130-400); RED BLOOD COUNT 3.66 M/uL (4.2-5.4); WHITE BLOOD COUNT 10.66 K/uL (4.8-10.8)
[2017-02-28 07:15] LABS: BUN/CREATININE RATIO 12.4 (10-20); CALCIUM 8.5 mg/dl (8.5-10.1); POTASSIUM 3.4 mmol/L (3.5-5.1)
--- NOTE | 2017-02-28 07:38 | Orthopedic Progress Note ---
Orthopedic Progress Note Date of Service Feb 28, 2017. Subjective Post OP Day: 2 Reports: feeling well, pain controlled w PO medications, Denies: SOB, calf pain , chest pain, complaints, light headedness, nausea / vomiting Additional Notes: Per nursing, patient somewhat non compliant, also had an episode where her knees buckled in BR this AM, systolic 94, otherwise BP's have been running okay. Objective calves soft nontender, N/V intact, hip located, capillary refill less than 2 sec., dressing C/D/I, toes mobile Silverlon in tact. Still pleasantly confused today, has not been using any narcotics Date Time Temp Pulse Resp B/P Pulse Ox O2 Delivery O2 Flow Rate FiO2 02/28/17 00:20 Room Air 02/27/17 23:07 36.8 77 16 113/67 98 Room Air 02/27/17 16:30 Room Air 02/27/17 15:24 36.7 68 16 103/56 99 Room Air 02/27/17 11:25 75 100 02/27/17 08:39 82 137/72 Laboratory Results 24 Hours: Test 02/28/17 06:00 White Blood Count 10.66 K/uL Red Blood Count 3.66 M/uL Hemoglobin 11.1 g/dL Hematocrit 33.2 % Mean Corpuscular Volume 90.7 fL Mean Corpuscular Hemoglobin 30.3 pg Mean Corpuscular Hemoglobin Concent 33.4 g/dl Platelet Count 158 K/uL Mean Platelet Volume 10.9 fL Neutrophils (%) (Auto) 71.7 % Lymphocytes (%) (Auto) 18.9 % Monocytes (%) (Auto) 8.6 % Eosinophils (%) (Auto) 0.3 % Basophils (%) (Auto) 0.2 % Neutrophils # (Auto) 7.65 K/uL Lymphocytes # (Auto) 2.01 K/uL Monocytes # (Auto) 0.92 K/uL Eosinophils # (Auto) 0.03 K/uL Basophils # (Auto) 0.02 K/uL Assessment & Plan Assessment: POD #2, Right JAMIL Plan: PT/ OT DVT proph- ASA D/C planning- Home w HH vs. [facility]. Appreciate medical input. Spoke w SS, still deciding with patient's on HH vs. [place], which would happen Friday. Given her confusion and need of supervision [place] would be a better option. Inhouse Planning Pain Management: Ultram, Morphine, PO Tylenol DVT Prophylaxis: TEDs, SCDs, ASA Discharge Planning Discharge Planning: uncertain Pain Management: Ultram, PO Tylenol DVT Prophylaxis: TEDs, ASA Therapy: Physical Therapy, Occupational Therapy
[2017-02-28 07:52] VITALS: O2SAT 99
[2017-02-28 07:53] VITALS: BP 105/63; PULSE 60; TEMP 36.8; O2SAT 99
[2017-02-28] MEDS: MULTIVITAMIN TAB PO SCH (08:39)
[2017-02-28] MEDS: MEMANTINE 5 MG TAB PO SCH ×2 (08:40→20:53)
[2017-02-28] MEDS: CHOLECALCIFEROL 1000 INTER.UNIT TAB PO SCH (08:40)
[2017-02-28] MEDS: ASPIRIN 81 MG ECTAB PO SCH ×2 (08:40→20:53)
[2017-02-28] MEDS: PANTOprazole SOD 40 MG TAB PO SCH (08:40)
[2017-02-28] MEDS: CALCIUM 600MG + VIT D 400 IU TAB PO SCH ×2 (08:41→20:53)
[2017-02-28 08:45] VITALS: BP 126/71; PULSE 71
[2017-02-28] MEDS: METOPROLOL SUCC 25MG EXT REL TAB PO SCH (08:46)
[2017-02-28] MEDS: DOCUSATE SODIUM 100 MG CAP PO SCH ×2 (09:20→20:53)
[2017-02-28] MEDS ORDERED: RXC5 PO (12:20)
[2017-02-28] MEDS ORDERED: ACET-1138 PO (12:20)
[2017-02-28] MEDS ORDERED: SNK PO (12:20)
[2017-02-28] MEDS ORDERED: ASPEC81 PO (12:20)
[2017-02-28] MEDS ORDERED: ULT50X PO (12:29)
--- NOTE | 2017-02-28 12:29 | Discharge Instructions ---
Discharge Instructions Date of Service Feb 28, 2017. Admission Reason for Admission: Djd Hip Right Discharge Discharge Diagnosis / Problem: Right Hip djd Discharge Goals Goal(s): Decrease discomfort, Improve function Activity Recommendations Activity Level: Assistance Required Therapies: Physical Therapy (JAMIL protocol and precautions), Occupational Therapy (ADL's and transfers) Weightbearing Status: Right weightbearing (as tolerated) . Additional Information Patient informed of condition: Yes Advance Directives: No DNR: No Level of Care: Skilled Communicable Disease: No Prognosis: Stable Juarez Catheter: No Instructions / Follow-Up Instructions / Follow-Up ACTIVITY RECOMMENDATIONS: SELF CARE INSTRUCTIONS AFTER TOTAL HIP REPLACEMENT Until the incision and soft tissues around your hip have healed, there is a possibility that the hip prosthesis could dislocate. A. Observe the following precautions to prevent dislocation: 1. Don't bend your hip greater than 90 degrees. 2. Avoid crossing your legs or ankles while standing or lying. 3. Sit with your feet placed 6 inches apart. 4. When sitting, keep your knees below your hips. Sit on a firm surface, avoid deep, soft chairs and couches. Use an elevated toilet seat in the bathroom. 5. Don't bend over at the waist. Use a long handled shoehorn and a sock aid to help you put on your shoes and socks. A refrigerator tester can help you machine operator picker objects that are too high or too low to reach. 6. Keep car riding to a minimum for at least one month after surgery. B. Your balance may be shaky for a while. Use crutches or a walker until directed by your doctor. C. Use hand rails when walking on stairs. D. Wear low heeled shoes with non-slip soles. E. Be sure that your floors are free of things that could trip you - throw rugs , electrical cords, small objects. Avoid wet and waxed floors, especially with crutches and canes. F. Try to walk several times a day with rest periods between. G. Continue with all the exercises taught to you in the hospital. Again, make walking a part of your daily routine. SPECIAL CARE INSTRUCTIONS: VERY IMPORTANT TO READ AND REVIEW A. You may still be at risk for phlebitis and blood clots. 1. Wear surgical stockings (CALDERON hose) for 2 weeks after surgery to improve circulation and reduce swelling. 2. Take Aspirin 81mg twice daily for 4 weeks or as directed by your doctor. This is your blood thinner. 3. High risk patients may be prescribed a stronger blood thinner if necessary. 4. If you are on Coumadin normally, your family doctor/major appliance assembly supervisor should monitor your blood work. Expect a phone call the day of or the day after bloodwork is drawn to adjust your dosage. B. You must take antibiotics before having dental work, bladder, bowel and other surgery. Your doctor will provide you with a permanent card to carry describing precautions. C. Call [facility] if you have a fever, redness or swelling around the incision, cloudy drainage from incision, or sudden increase in pain in your hip, not relieved by your regular pain medication. D. Please call the office at if you have any concerns or questions about your operation or recovery. * YOU MAY SHOWER, NO TUB BATHS UNTIL CLEARED BY YOUR DOCTOR. * WEAR CALDERON HOSE 20 HOURS PER DAY FOR 2 WEEKS. * YOU SHOULD USE A WALKER OR CRUTCHES FOR 2-4 WEEKS. THIS WILL HELP PREVENT STRAIN ON YOUR HIP MUSCLE AND ALLOW IT TO HEAL PROPERLY. YOU MAY WEAN TO A CANE TOLERATED. * MOST PATIENTS WILL HAVE HOME NURSING FOR THERAPY. IF YOU DECIDE TO DO OUTPATIENT PHYSICAL THERAPY, PLEASE SCHEDULE THIS 3 TIMES PER WEEK. * Silverlon- This is a large adhesive bandage that contains silver ions. This helps your incision heal by fighting off bacteria and protecting it from the outside environment. You are permitted to shower with this dressing. This will remain on your incision for 7 days and then should be removed. Some visible blood or drainage through the dressing window is normal. If there is significant drainage or leaking noted before the 7 days notify your doctor's office immediately. Once removed, keep incision clean and dry. If there is any drainage or redness noted, please call your surgeon. . FOLLOW UP VISIT: If appointment is not already scheduled: Please call [facility] to make a follow-up appointment for 2 weeks after your surgery at . Current Hospital Diet Patient's current hospital diet: Regular Diet Discharge Diet Recommended Diet: Regular Diet Procedures Procedures Performed: Right Total Hip Arthroplasty-uncemented Pending Studies Studies pending at discharge: no Physician Orders On Transfer Dressing Changes: As per Silverlon instructions above Vital Signs: routine Medical Emergencies . Who to Call and When: Medical Emergencies: If at any time you feel your situation is an emergency, please call 911 immediately. . Non-Emergent Contact Non-Emergency issues call your: Surgeon Call Non-Emergent contact if: temperature is above 101.5, your pain is not controlled, your pain is worsening, wound has increased drainage, wound has increased redness . . "Provider Documentation" section prepared by Anthony Terry. Core Measure Problem Core Measures: None [place] Drug Monitoring Program Search Results: patient reviewed within database, no issues identified
--- NOTE | 2017-02-28 14:39 | Progress Note ---
Subjective Date of Service: Feb 28, 2017. Subjective Pt evaluation today including: conversation w/ patient, conversation w/ family , physical exam, chart review, lab review, review of inpatient medication list Review of Systems Constitutional: No chills, No fatigue, No fever, No problem reported, No see HPI, No sweats, No weakness, No weight loss Eyes: No diplopia, No discharge, No eye pain, No problem reported, No redness, No see HPI, No worsening of vision ENT: No dental problems, No hearing loss, No nasal symptoms, No problem reported, No see HPI, No sore throat, No tinnitus, No trouble swallowing, No unusual epistaxis Respiratory: No cough, No dyspnea at rest, No dyspnea on exertion, No hemoptysis, No problem reported, No see HPI, No shortness of breath, No sputum, No wheezing Cardiac: No PND, No chest pain, No claudication, No edema, No orthopnea, No palpitations, No problem reported, No see HPI Abdomen: No GI bleeding, No constipation, No diarrhea, No nausea, No pain, No problem reported, No see HPI, No vomiting Musculoskeletal: No calf pain, No joint pain, No muscle pain, No problem reported, No see HPI, No swelling Female : No abnormal vaginal bleeding, No dysuria, No hematuria, No incontinence, No problem reported, No see HPI, No urinary frequency, No vaginal discharge Neurologic: No balance problems, No memory loss, No numbness/tingling, No paralysis, No problem reported, No see HPI, No vertigo, No weakness Psychiatric: No anhedonism, No anxiety, No depression symptoms, No insomnia, No problem reported, No see HPI, No substance abuse Heme: No abnormal bleeding/bruising, No clotting problems, No night sweats, No problem reported, No see HPI, No swollen lymph nodes Endo: No excessive thirst, No excessive urination, No fatigue, No problem reported, No see HPI Skin: No bleeding, No color change, No itch, No new/changing skin lesions, No problem reported, No rash, No see HPI Medications Current Inpatient Medications Medications (Trade) Dose Ordered Sig/Cy Route Start Time Stop Time Status Last Admin Dose Admin Memantine (Namenda Tab) 5 mg BID PO 02/26/17 21:00 03/28/17 20:59 02/28/17 08:40 5 MG Metoprolol Succinate (Toprol Xl Tab) 25 mg QAM PO 02/27/17 09:00 03/29/17 08:59 02/28/17 08:46 25 MG Pantoprazole Sodium (Protonix Tab) 40 mg QAM PO 02/27/17 09:00 03/29/17 08:59 02/28/17 08:40 40 MG Simvastatin (Zocor Tab) 20 mg QPM PO 02/26/17 21:00 03/28/17 20:59 02/27/17 20:59 20 MG Cholecalciferol (Vitamin D Tab) 1,000 inter.unit QAM PO 02/27/17 09:00 03/29/17 08:59 02/28/17 08:40 1,000 INTER.UNIT Verapamil HCl (Calan-Sr Tab) 120 mg QPM PO 02/26/17 21:00 03/28/17 20:59 02/27/17 20:58 120 MG Oxycodone HCl (Roxicodone Immediate Rel Tab) 1 TABLET FOR PAIN RATING... Q4H PRN PO 02/26/17 10:00 03/12/17 09:59 Morphine Sulfate (MoRPHine SULFATE INJ) 2 mg Q2H PRN IV 02/26/17 10:00 03/12/17 09:59 Acetaminophen (Tylenol Tab) 1,000 mg Q8H PO 02/26/17 14:00 03/28/17 13:59 02/28/17 13:35 1,000 MG Magnesium Hydroxide (Milk Of Magnesia Susp) 30 ml Q6H PRN PO 02/26/17 10:00 03/28/17 09:59 Bisacodyl (Dulcolax Supp) 10 mg DAILY PRN DE 02/26/17 10:00 03/28/17 09:59 Sodium Biphosphate/ Sodium Phosphate (Fleet Enema) 132 ml DAILY PRN DE 02/26/17 10:00 03/28/17 09:59 Docusate Sodium (coLACE CAP) 100 mg BID PO 02/26/17 21:00 03/28/17 20:59 02/28/17 09:20 100 MG Diphenhydramine HCl (Benadryl Cap) 25 mg Q8H PRN PO 02/26/17 10:00 03/28/17 09:59 Zolpidem Tartrate (Ambien Tab) 5 mg HSZ PRN PO 02/26/17 10:00 03/28/17 09:59 Multivitamins (Multivitamin Tab) 1 tab QAM PO 02/27/17 09:00 03/29/17 08:59 02/28/17 08:39 1 TAB Ondansetron HCl (Zofran Inj) 4 mg Q6H PRN IV 02/26/17 10:00 03/28/17 09:59 Tramadol HCl (Ultram Tab) 1 TABLET FOR PAIN RATING... Q4H PRN PO 02/26/17 10:00 03/28/17 09:59 Aspirin (Ecotrin Tab) 81 mg BID PO 02/26/17 21:00 03/28/17 20:59 02/28/17 08:40 81 MG Calcium/Vitamin D (Caltrate Plus Tab) 1 tab BID PO 02/26/17 21:00 03/28/17 20:59 02/28/17 08:41 1 TAB Morphine Sulfate (MoRPHine SULFATE INJ) 4 mg Q2H PRN IV 02/26/17 14:30 03/12/17 14:29 Objective Vital Signs Date Time Temp Pulse Resp B/P Pulse Ox O2 Delivery O2 Flow Rate FiO2 02/28/17 08:45 71 126/71 02/28/17 07:53 36.8 60 16 105/63 99 Room Air 02/28/17 07:52 99 Room Air 02/28/17 07:10 Room Air 02/28/17 00:20 Room Air 02/27/17 23:07 36.8 77 16 113/67 98 Room Air 02/27/17 16:30 Room Air 02/27/17 15:24 36.7 68 16 103/56 99 Room Air Physical Exam General Appearance: no apparent distress Eyes: normal inspection, EOMI ENT: normal ENT inspection, hearing grossly normal Neck: supple Respiratory/Chest: chest non-tender, lungs clear, normal breath sounds, no respiratory distress Cardiovascular: regular rate, rhythm, no edema, no gallop, no JVD Abdomen: normal bowel sounds, non tender, soft, no organomegaly Extremities: normal range of motion, non-tender, normal inspection, no pedal edema Neurologic/Psychiatric: 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, no motor/sensory deficits, alert, normal mood/affect, oriented x 3 Skin: normal color, warm/dry, no rash Laboratory Results Last 24 Hours Test 02/28/17 06:00 White Blood Count 10.66 K/uL Red Blood Count 3.66 M/uL Hemoglobin 11.1 g/dL Hematocrit 33.2 % Mean Corpuscular Volume 90.7 fL Mean Corpuscular Hemoglobin 30.3 pg Mean Corpuscular Hemoglobin Concent 33.4 g/dl Platelet Count 158 K/uL Mean Platelet Volume 10.9 fL Neutrophils (%) (Auto) 71.7 % Lymphocytes (%) (Auto) 18.9 % Monocytes (%) (Auto) 8.6 % Eosinophils (%) (Auto) 0.3 % Basophils (%) (Auto) 0.2 % Neutrophils # (Auto) 7.65 K/uL Lymphocytes # (Auto) 2.01 K/uL Monocytes # (Auto) 0.92 K/uL Eosinophils # (Auto) 0.03 K/uL Basophils # (Auto) 0.02 K/uL RDW Standard Deviation 45.2 fL RDW Coefficient of Variation 13.5 % Immature Granulocyte % (Auto) 0.3 % Immature Granulocyte # (Auto) 0.03 K/uL Sodium Level 141 mmol/L Potassium Level 3.4 mmol/L Chloride Level 105 mmol/L Carbon Dioxide Level 34 mmol/L Anion Gap 2.0 mmol/L Blood Urea Nitrogen 12 mg/dl Creatinine 1.00 mg/dl Est Creatinine Clear Calc Drug Dose 32.8 ml/min Estimated GFR () 62.1 Estimated GFR (Non- 53.5 BUN/Creatinine Ratio 12.4 Random Glucose 89 mg/dl Calcium Level 8.5 mg/dl Assessment and Plan 81-year-old female with S/P right total hip arthroplasty. she has Hx of hypertension, hip osteoarthritis, hyperlipidemia, obstructive sleep apnea on CPAP, GERD, blepharospasm, CTD stage III, restless leg syndrome, osteoporosis, vitamin D deficiency, and mild cognitive impairment Right JAMIL-postop day # 2 -Pain control -early mobilization -DVT prophylaxis as per orthopedic primary service, currently on aspirin 81 mg by mouth twice a day -I would avoid NSAIDs such as Celebrex in this patient given her history of CK D stage III Confusion, likely worsening dementia, which is expected with hospitalization in elderly I spoke with her and explained that to him can be discharged from medical prospective Hypertension, hyperlipidemia-blood pressure is stable -Continue home metoprolol, verapamil, and simvastatin Obstructive sleep apnea-stable -Continue CPAP at night, can bring from home CKD stage III-baseline creatinine 1.1-1.2, GFR 47 -Avoid nephrotoxins and please renally dose all meds Osteoporosis, vitamin D deficiency-stable -Continue calcium plus vitamin D Mild cognitive impairment-stable, watch for delirium in the setting of opioid use and hospitalization -Continue Namenda at home dose GERD-stable -Continue PPI
[2017-02-28 15:49] VITALS: BP 91/51; PULSE 61; O2SAT 97
[2017-02-28 16:07] VITALS: BP 105/62; TEMP 36.7
[2017-02-28] MEDS: VERAPAMIL HCL 120 MG TABCR PO SCH (20:53)
[2017-02-28] MEDS: SIMVASTATIN 20 MG TAB PO SCH (20:53)
[2017-02-28 22:55] VITALS: BP 126/60; PULSE 79; TEMP 36.7; O2SAT 97
[2017-03-01] MEDS: ACETAMINOPHEN 500 MG TAB PO SCH (06:34)
[2017-03-01 06:55] VITALS: BP 153/72; PULSE 84; TEMP 36.7; O2SAT 100
[2017-03-01] MEDS: CALCIUM 600MG + VIT D 400 IU TAB PO SCH (08:16)
[2017-03-01] MEDS: DOCUSATE SODIUM 100 MG CAP PO SCH (08:17)
[2017-03-01] MEDS: ASPIRIN 81 MG ECTAB PO SCH (08:17)
[2017-03-01] MEDS: MEMANTINE 5 MG TAB PO SCH (08:18)
[2017-03-01] MEDS: PANTOprazole SOD 40 MG TAB PO SCH (08:18)
[2017-03-01] MEDS: MULTIVITAMIN TAB PO SCH (08:18)
[2017-03-01] MEDS: METOPROLOL SUCC 25MG EXT REL TAB PO SCH (08:19)
[2017-03-01] MEDS: CHOLECALCIFEROL 1000 INTER.UNIT TAB PO SCH (08:19)
--- NOTE | 2017-03-01 08:19 | Orthopedic Progress Note ---
Orthopedic Progress Note Date of Service Mar 01, 2017. Subjective Post OP Day: 3 Denies: SOB, calf pain, chest pain, light headedness, nausea / vomiting Additional Notes: Pt awake, alert. Sitting in chair at bedside. States that she thinks some of the medication is making her mind a "little foggy". Knows she is in the hospital and she had her right hip replaced. No other complaints. Pain controlled. States she's ready to get going this morning. Objective calves soft nontender, N/V intact, hip located, dressing C/D/I, toes mobile Date Time Temp Pulse Resp B/P Pulse Ox O2 Delivery O2 Flow Rate FiO2 03/01/17 06:55 36.7 84 16 153/72 100 Room Air 03/01/17 00:10 Room Air 02/28/17 22:55 36.7 79 16 126/60 97 Room Air 02/28/17 16:07 36.7 105/62 02/28/17 16:00 Room Air 02/28/17 15:49 61 16 91/51 97 Room Air 02/28/17 08:45 71 126/71 Assessment & Plan Assessment: POD #3, Right JAMIL Plan: PT/ OT DVT proph- ASA D/C planning- [place] [facility] today Appreciate medical input. Inhouse Planning Pain Management: Ultram, Morphine, PO Tylenol, Oxy IR (Not using OxyIR at this time) DVT Prophylaxis: TEDs, SCDs, ASA Discharge Planning Discharge Planning: long term facility Pain Management: Ultram, PO Tylenol DVT Prophylaxis: TEDs, ASA Therapy: Physical Therapy, Occupational Therapy
[2017-03-01 09:57] VITALS: BP 153/72; PULSE 84; TEMP 36.7; O2SAT 100
--- NOTE | 2017-03-01 16:32 | Progress Note ---
Subjective Date of Service: Mar 01, 2017. Subjective Pt evaluation today including: conversation w/ patient, physical exam, lab review Review of Systems Constitutional: No chills, No fatigue, No fever, No problem reported, No see HPI, No sweats, No weakness, No weight loss Eyes: No diplopia, No discharge, No eye pain, No problem reported, No redness, No see HPI, No worsening of vision ENT: No dental problems, No hearing loss, No nasal symptoms, No problem reported, No see HPI, No sore throat, No tinnitus, No trouble swallowing, No unusual epistaxis Respiratory: No cough, No dyspnea at rest, No dyspnea on exertion, No hemoptysis, No problem reported, No see HPI, No shortness of breath, No sputum, No wheezing Cardiac: No PND, No chest pain, No claudication, No edema, No orthopnea, No palpitations, No problem reported, No see HPI Abdomen: No GI bleeding, No constipation, No diarrhea, No nausea, No pain, No problem reported, No see HPI, No vomiting Musculoskeletal: No calf pain, No joint pain, No muscle pain, No problem reported, No see HPI, No swelling Neurologic: No balance problems, No memory loss, No numbness/tingling, No paralysis, No problem reported, No see HPI, No vertigo, No weakness Psychiatric: No anhedonism, No anxiety, No depression symptoms, No insomnia, No problem reported, No see HPI, No substance abuse Heme: No abnormal bleeding/bruising, No clotting problems, No night sweats, No problem reported, No see HPI, No swollen lymph nodes Endo: No excessive thirst, No excessive urination, No fatigue, No problem reported, No see HPI Skin: No bleeding, No color change, No itch, No new/changing skin lesions, No problem reported, No rash, No see HPI Objective Vital Signs Date Time Temp Pulse Resp B/P Pulse Ox O2 Delivery O2 Flow Rate FiO2 03/01/17 09:57 36.7 84 16 100 Room Air 03/01/17 08:15 Room Air 03/01/17 06:55 36.7 84 16 153/72 100 Room Air 03/01/17 00:10 Room Air 02/28/17 22:55 36.7 79 16 126/60 97 Room Air Physical Exam General Appearance: no apparent distress Eyes: normal inspection ENT: normal ENT inspection, hearing grossly normal Neck: supple Respiratory/Chest: chest non-tender, lungs clear, normal breath sounds Cardiovascular: regular rate, rhythm, no edema, no gallop Abdomen: normal bowel sounds, non tender, soft Extremities: normal range of motion, non-tender 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 she has Hx of hypertension, hip osteoarthritis, hyperlipidemia, obstructive sleep apnea on CPAP, GERD, blepharospasm, CTD stage III, restless leg syndrome, osteoporosis, vitamin D deficiency, and mild cognitive impairment patient is getting ready to be discharged today Right JAMIL-postop day # 3 -Pain control -early mobilization -DVT prophylaxis as per orthopedic primary service, currently on aspirin 81 mg by mouth twice a day -I would avoid NSAIDs such as Celebrex in this patient given her history of CK D stage III Confusion, likely worsening dementia, which is expected with hospitalization in elderly I spoke with her yesterday and explained that to him Hypertension, hyperlipidemia-blood pressure is stable -Continue home metoprolol, verapamil, and simvastatin Obstructive sleep apnea-stable -Continue CPAP at night, can bring from home CKD stage III-baseline creatinine 1.1-1.2, GFR 47 -Avoid nephrotoxins and please renally dose all meds Osteoporosis, vitamin D deficiency-stable -Continue calcium plus vitamin D Mild cognitive impairment-stable, watch for delirium in the setting of opioid use and hospitalization -Continue Namenda at home dose GERD-stable -Continue PPI
--- NOTE | 2017-03-11 16:24 | DISCHARGE SUMMARY ---
HISTORY OF PRESENT ILLNESS: This is a 81-year-old female patient of Dr. Prasad'penny complaining of chronic right hip pain, longstanding, progressively getting worse. The patient was diagnosed with end-stage osteoarthritis and elected to proceed with a right total hip arthroplasty. PAST MEDICAL HISTORY: Hypercholesterolemia, sleep apnea with the use of CPAP, rheumatoid arthritis, osteoarthritis, sciatica, acid reflux, recent weight loss and stage III kidney disease. POSTOPERATIVE COURSE: The patient underwent a right total hip arthroplasty on 02/26/2017. She was followed closely with medical consultation, DVT prophylaxis in the form of aspirin, pain control and physical therapy. The patient did have some increased dementia postoperatively, but medical consultation felt that this was due to general hospitalization and narcotic use. Narcotic use was limited and patient was at baseline on discharge. Otherwise, no issues postoperatively. PHYSICAL EXAMINATION: On discharge right hip Silverlon dressing was clean, dry and intact. There was no redness or drainage. Neurologically and neurovascularly she was intact in her right lower extremity with no calf tenderness and negative Homans sign bilaterally. DIAGNOSES: Status post right total hip arthroplasty with a history of hypercholesterolemia, sleep apnea, rheumatoid arthritis, osteoarthritis, sciatica, acid reflux, severe weight loss recently and stage III kidney disease. PLAN: The patient was transferred to [facility] on discharge from the hospital. She will continue her preadmission medications as well as pain control. She will continue aspirin twice daily for DVT prophylaxis and follow up as an outpatient as scheduled.
== END 2017-03-01 11:15 | DRG 470 ==
LOC: ENRESERVTM → ENRESERVDT → C.ACU 05:20 → C.3E 07:00
PROVIDERS: ADMIT Orthopaedic Surgery Sports Medicine; ATTEND Orthopaedic Surgery Sports Medicine
PROC: 0SR904Z Replacement of Right Hip Joint with Ceramic on Polyethylene Synthetic Substitute, Open Approach (ICD-10-PCS; principal; 2017-02-26 07:30)
DX: M16.11 Unilateral primary osteoarthritis, right hip (principal); Z68.1 Body mass index [BMI] 19.9 or less, adult; R41.0 Disorientation, unspecified; F03.90 Unspecified dementia, unspecified severity, without behavioral disturbance, psychotic disturbance, mood disturbance, and anxiety; K21.9 Gastro-esophageal reflux disease without esophagitis; I12.9 Hypertensive chronic kidney disease with stage 1 through stage 4 chronic kidney disease, or unspecified chronic kidney disease; N18.3 Chronic kidney disease, stage 3 (moderate); E78.00 Pure hypercholesterolemia, unspecified; E78.5 Hyperlipidemia, unspecified; M06.9 Rheumatoid arthritis, unspecified; M54.30 Sciatica, unspecified side; E55.9 Vitamin D deficiency, unspecified; M81.0 Age-related osteoporosis without current pathological fracture; R63.4 Abnormal weight loss; G47.33 Obstructive sleep apnea (adult) (pediatric); Z79.899 Other long term (current) drug therapy

== ENCOUNTER → 2017-08-14 | Outpatient (CLI) | payer OTHER, BC ==
[~2017-08-14] MED LIST changes: +ACET-1138 PO; +ASPEC81 PO; -GLUC10007 PO; +SNK PO; +ULT50X PO
[2017-08-14 13:06] LABS: BASO % 0.6 %; BASO ABS # 0.03 K/uL (0-0.2); COMPLETE YES; EOS % 1.7 %; HEMATOCRIT 40.8 % (37-47); IG% 0.2 %; LYMPH % 30.6 %; LYMPH ABS # 1.59 K/uL (1.2-3.4); MEAN CELL VOLUME 92.1 fL (80-100); MEAN CORPUSCULAR HEMOGLOBIN 30.2 pg (25-34); MEAN CORPUSCULAR HGB CONC 32.8 g/dl (32-36); MEAN PLATELET VOLUME 10.9 fL (7.4-10.4); MONO % 8.3 %; NEUT % 58.6 %; PLATELET COUNT 186 K/uL (130-400); RED BLOOD COUNT 4.43 M/uL (4.2-5.4); WHITE BLOOD COUNT 5.19 K/uL (4.8-10.8)
[2017-08-14 13:28] LABS: BLOOD UREA NITROGEN 15 mg/dl (7-18); BUN/CREATININE RATIO 13.8 (10-20); CALCIUM 9.4 mg/dl (8.5-10.1); CARBON DIOXIDE 32 mmol/L (21-32); CHLORIDE 106 mmol/L (98-107); GLUCOSE 100 mg/dl (70-99); POTASSIUM 3.9 mmol/L (3.5-5.1); SODIUM 141 mmol/L (136-145)
[2017-08-14 13:33] LABS: PHOSPHORUS 3.6 mg/dl (2.5-4.9)
== END | disposition home or self-care (01) ==
LOC: C.LABMFLN 11:27
PROVIDERS: ATTEND Family Medicine
DX: R07.9 Chest pain, unspecified (principal); N18.3 Chronic kidney disease, stage 3 (moderate)

== ENCOUNTER → 2017-12-16 | Outpatient (CLI) | payer OTHER, BC ==
[2017-12-16 18:28] LABS: BLOOD UREA NITROGEN 18 mg/dl (7-18); CALCIUM 9.6 mg/dl (8.5-10.1); CARBON DIOXIDE 30 mmol/L (21-32); CHOLESTEROL 248 mg/dl (0-200); CREATININE 1.24 mg/dl (0.60-1.20); GLUCOSE 98 mg/dl (70-99); LDL CHOLESTEROL CALCULATED 133 mg/dl; PHOSPHORUS 3.3 mg/dl (2.5-4.9); POTASSIUM 3.7 mmol/L (3.5-5.1); SODIUM 138 mmol/L (136-145)
== END | disposition home or self-care (01) ==
LOC: C.LABMFLN 11:14
PROVIDERS: ATTEND Family Medicine
DX: N18.3 Chronic kidney disease, stage 3 (moderate) (principal); E78.5 Hyperlipidemia, unspecified

== ENCOUNTER → 2018-03-17 | Outpatient (CLI) | payer OTHER, BC ==
[~2018-03-17] MED LIST changes: -ASPEC81 PO; +ASPI-320 PO
[2018-03-17 18:29] LABS: ALBUMIN 3.8 gm/dl (3.4-5.0); ALT/SGPT 27 U/L (12-78); AST/SGOT 23 U/L (15-37); BLOOD UREA NITROGEN 16 mg/dl (7-18); CALCIUM 9.2 mg/dl (8.5-10.1); CARBON DIOXIDE 31 mmol/L (21-32); CREATININE 1.25 mg/dl (0.60-1.20); GLUCOSE 77 mg/dl (70-99); SODIUM 138 mmol/L (136-145)
[2018-03-17 18:31] LABS: ALKALINE PHOSPHATASE 95 U/L (45-117); CHOLESTEROL 172 mg/dl (0-200); LDL CHOLESTEROL CALCULATED 64 mg/dl; TOTAL PROTEIN 7.3 gm/dl (6.4-8.2)
== END | disposition home or self-care (01) ==
LOC: C.LABMFLN 14:19
PROVIDERS: ATTEND Family Medicine
DX: N18.3 Chronic kidney disease, stage 3 (moderate) (principal); E78.5 Hyperlipidemia, unspecified